=== PATIENT | female | born 1960 | race African-American/Black ===

== ENCOUNTER 2016-08-01 06:58 | Emergency (ER) | payer OTHER ==
--- NOTE | ~2016-08-01 | CR72 ---
[facility] A Service of [facility] & [facility] RADIOLOGY TEXT RESULTS PATIENT: NITA DE OLIVEIRA LOCATION: [facility] : 64 UNIT #: [id number] AGE: [address]: Pedro Gonzales MD SEX: F ORDER DR: [id number] [facility] [address] [place], [place] [address] [id number] E MR#: [id number] Acc #: [id number] NAME: NITA DE OLIVEIRA : 1960 SEX: F STUDY DATE/TIME: 08/01/2016 5:14 UNIT: [facility] ROOM: STUDY DESCRIPTION: CR Chest Single View Portable Attending Physician: Pedro Gonzales M.D. Ordering Physician: Theodore Alvarado P.A.-C. Primary Care Physician: Generic Doctor Not In System MEDICAL IMAGING REPORT This report is preliminary unless electronic signature is present EXAM AP portable chest DATE 08/01/2016 HISTORY Chest pain and elevated blood pressure tonight. COMPARISON None. FINDINGS A single AP portable view of the chest shows both lungs to be clear. The heart is normal in size. The mediastinal contour is normal. No significant bone abnormalities are seen. IMPRESSION Normal portable chest. Dictated by... Cielo Monreal M.D. THIS IS AN ELECTRONICALLY VERIFIED REPORT Cielo Monreal M.D. at 08/06/2016 4:12 PM JOSE/maritza TD: 08/01/2016 09:23 JOB #: [id number] MEDICAL IMAGING REPORT Page 1 of 1 COPY
--- NOTE | ~2016-08-01 | EKG ---
PATIENT: NITA DE OLIVEIRA UNIT #: [id number] Ventricular Rate: 68 BPM Atrial Rate: 68 BPM P-R Interval: 188 ms QRS Duration: 90 ms Q-T Interval: 394 ms QTC Calculation(Bezet): 418 ms P [place]: 73 degrees Calculated R [place]: 53 degrees Calculated T [place]: 70 degrees Diagnosis Line: Normal sinus rhythm Diagnosis Line: Normal ECG Diagnosis Line: No previous ECGs available Diagnosis Line: Confirmed by ESTEPHANIA MEHTA MD ([id number]) on 08/03/2016 Diagnosis Line: 4:02:25 PM INTERPRETING MD: TYSON WINN
[2016-08-01 05:38] LABS: BASOPHIL% 0.6 % (0-2.5); EOSINOPHIL# 0.3 X10e3 (0-0.7); EOSINOPHIL% 3.3 % (0.0-7.0); HEMATOCRIT 35.5 % (35.0-45.0); HEMOGLOBIN 11.7 gm/dL (12.0-16.0); LYMPHOCYTE# 2.7 X10e3 (1.0-3.5); LYMPHOCYTE% 35.4 % (17.0-45.0); MEAN CELL VOLUME 95.6 FL (83-96); MEAN CORPUSCULAR HEMOGLOBIN 31.6 PG (28-34); MEAN CORPUSCULAR HGB CONC 33.1 g/dL (30-36); MEAN PLATELET VOLUME 8.1 FL (6.5-11.5); MONOCYTE# 0.7 X10e3 (0-1.0); MONOCYTE% 8.9 % (3.0-12.0); NEUTROPHIL% 51.8 % (40-75); PLATELET COUNT 229 X10e3 (140-420); RED BLOOD COUNT 3.71 X10e (3.90-5.30); RED CELL DISTRIBUTION WIDTH 13.9 % (11.0-15.5); WHITE BLOOD COUNT 7.6 X10e3 (4.0-10.5)
[2016-08-01 05:41] LABS: DIFF IND NO
[2016-08-01 05:46] LABS: POC - CKMB 1.1 ng/mL (0.0-7.9); POC - TROPONIN <0.05 ng/mL (<=0.05)
[2016-08-01 06:46] LABS: BILIRUBIN, DIRECT 0.1 mg/dL (0.0-0.2); BILIRUBIN,INDIRECT 0.8 mg/dL (0.0-0.9); BILIRUBIN,TOTAL 0.9 mg/dL (0.2-2.0); CREATININE SERUM 1.2 mg/dL (0.6-1.4); GLOM FILT RATE Estimated 51.2 mL/min (>60); POTASSIUM 3.7 mmol/L (3.5-5.1); PROTEIN TOTAL SERUM 7.1 g/dL (6.0-8.3)
[2016-08-01 07:24] LABS: POC - CKMB <1.0 ng/mL (0.0-7.9); POC - TROPONIN <0.05 ng/mL (<=0.05)
== END 2016-08-01 07:50 | disposition home or self-care (01) ==
LOC: CED 06:58
PROVIDERS: Emergency Medicine; Physician Assistant
DX: I10 Essential (primary) hypertension (principal)
CPT/HCPCS: 36415; 71010; 80048; 80076; 82553; 84484; 85025; 93005; 96374; 96376; 99284; J3490